=== PATIENT | male | born 1970 | race Caucasian/White ===

== ENCOUNTER 2019-11-03 13:29 | Outpatient (CLI) | payer OTHER, SELFPAY ==
--- NOTE | 2019-11-03 14:00 | NEURO_ITS ---
TEST: ELECTROENCEPHALOGRAM DIAGNOSIS: HEADACHE PATIENT NUMBER: [id number] EEG NUMBER: [id number] RECORDING DATE: 11/03/19 CLINICAL HISTORY: Patient reports episodes of muscle twitching, blurred vision, migraines, hallucinations and feeling like he is going to pass out. CONDITION OF RECORDING: Awake, drowsy and sleep EEG DESCRIPTION: Basic resting occipital frequency consists of moderate amount of fairly well organized low to medium voltage 8-10hz alpha mixed with low voltage 15-18hz beta. During drowsiness low voltage beta activity is seen diffusely mixed with waxing and waning posterior alpha rhythms. Bilateral symmetrical sleep activity is seen during sleep. Photic stimulation produced normal drive. Hyperventilation produced normal and symmetrical build-up. Nonparoxysmal. Nonfocal. Nonlateralizing. IMPRESSION: Normal record. [facility]
== END 2019-11-03 13:30 | disposition home or self-care (01) ==
LOC: ANHNEURO 13:33
PROVIDERS: Visit Provider Psychiatry & Neurology Neurology
DX: R51 Headache (principal)
CPT/HCPCS: 95816